=== PATIENT | female | born 1995 | race Caucasian/White ===

== ENCOUNTER 2024-08-26 20:25 | Emergency (ER) | payer OTHER, SELFPAY ==
[2024-08-26 20:32] VITALS: BP 107/60; PULSE 81; RESP 18; TEMP 37.1; O2SAT 98; BMI 34.4
--- NOTE | 2024-08-26 20:34 | ED_ITS ---
HPI - Nausea/Vomiting/Diarrhea General Chief complaint: Nausea/Vomiting/Diarrhea Stated complaint: vomiting/nose bleeding/dizzy Time Seen by Provider: 08/26/24 21:56 History of Present Illness ED Provider: Kostas MEDRANO Narrative: The patient is a 28-year-old woman with a history of leukemia. She receives her treatment in [place]. She last had chemotherapy 3 months ago. She says that she was 1st diagnosed with leukemia at the age of 9. The patient comes to the emergency room today because she has had some intermittent nausea over the last few days. Today she had vomiting and some epigastric discomfort and felt lightheaded. She also had a nosebleed. She became very nervous and came to the emergency room. While waiting to be seen her symptoms have essentially completely resolved although she has some slight ongoing epigastric discomfort. She is feeling much much better. No fevers. No sweats or chills. Related Data Allergies Allergy/AdvReac Type Severity Reaction Status Date / Time bee pollen [BEE STINGS] Allergy Unknown ANAPHLYAXIS Verified 08/26/24 20:37 bee sting Allergy Unknown anaphylaxis Uncoded 08/26/24 20:37 Review of Systems 2 Review of Systems: Yes all other systems are reviewed and are negative PMFSH Social History Social History Advance Directives: No Advance Directives Information Provided: No Do you have a plan to hurt others: No Plan Physical Exam 2 Vital Signs: Vital Signs: Last Vital Signs Temp 98.2 F 08/26/24 22:43 Pulse 63 08/26/24 22:43 Resp 16 08/26/24 22:43 BP 104/61 08/26/24 22:43 Pulse Ox 98 08/26/24 22:43 O2 Del Method Room Air 08/26/24 22:43 BMI result Body Mass Index 34.4 Const: Other: The patient is awake, alert, pleasant, cooperative. At the time that I saw her she was feeling better. She did not seem in acute distress. HEENT: Other: Face is symmetrical. Mucous membranes are moist. The pharynx is unremarkable. There is a small area on the right anterior nasal septum that showed what might have been stigmata of recent bleeding. There was no active bleeding, no blood clots in the nostrils. Eyes: General: appearance normal, both eyes and all related structures Neck: Neck: Yes normal visual inspection, Yes full ROM and Yes no lymphadenopathy Resp: Effort & Inspection: normal respiratory effort Auscultation: clear to auscultation bilaterally Cardio: Rate: regular rate Rhythm: regular rhythm Heart sounds: S1 normal heart sound present and S2 normal heart sound present GI: Other: The abdomen is flat, soft, and nontender. Skin: General skin exam: no rashes or lesions noted Neuro: Other: The patient is awake and alert with a normal mental status. Cranial nerves are grossly intact. She moves her extremities normally and appropriately. Gait is normal. Extrem: General: Yes normal to inspection, Yes full ROM, Yes no pedal edema and Yes no calf tenderness Course Course Course Narrative: This is a Rapid Medical Examination (RME) performed by Omid Gracia PA-C in triage. Full HPI, ROS, assessment and treatment plan per primary provider in the Main ED. 28 y/o female with history of recurrent leukemia x3 (AML) s/p multiple rounds of oral chemo (last was a few months ago at [facility]), lupus who presents to the ER for evaluation of 3 days of nausea, vomiting, fatigue, epigastric pain for the last 3 days. she has also had recurrent epistaxis. Plan: labs, including cbc w/ diff, UA, viral swab Medications Administered Discontinued Medications Generic Name Dose Route Start Last Admin Trade Name Freq PRN Reason Stop Dose Admin Sucralfate 1 gm 08/26/24 22:06 08/26/24 22:12 Sucralfate Oral Suspension 1 Gm/10 Ml Oral.Susp PO 08/26/24 22:07 1 gm ONCE ONE Administration Medical Decision Making Medical Decision Making MDM Narrative: Patient is a 28-year-old female with a history of leukemia. She received chemotherapy last 3 months ago. Today she had abdominal pain, nausea, and vomiting as well as some intermittent nosebleeds. There was no ongoing bleeding. Her symptoms had improved spontaneously prior to my evaluation. Labs show a white count of 10.3, hematocrit 36.2, platelet count 293, differential shows 64% neutrophils, 2% bands, 29% lymphocytes, 3% monocytes, 2% eosinophils. Metabolic labs are unremarkable with normal LFTs and lipase. Urinalysis is unremarkable, no sign of infection or blood. Viral swab was negative for the flu, RSV, and COVID. The patient was given a dose of sucralfate for some epigastric discomfort. This seemed to help. She looks very well. I think she may be discharged to follow up with the regular doctor. Lab Data 08/26/24 21:02 08/26/24 21:02 Labs: Lab Results 08/26/24 Range/Units 21:02 WBC 10.3 (4.8-10.8) X10*3/uL RBC 4.19 L (4.20-5.50) X10*6/uL Hgb 12.1 (12.0-16.0) g/dl Hct 36.2 L (37.0-47.0) % MCV 86.4 (80.0-98.0) fL MCH 28.9 (27.0-33.0) pg MCHC 33.4 (31.0-35.0) g/dl RDW 13.1 (11.0-16.0) % Plt Count 293 (160-400) X10*3/uL MPV 10.2 (9.4-12.3) fL Absolute Nucleated RBC 0.000 (0.0-0.012) X10*3/uL Nucleated RBC % (auto) 0.0 (0.0-0.2) /100WBC Neutrophils % (Manual) 64 (45-73) % Band Neutrophils % 2 L (3-5) % Lymphocytes % (Manual) 29 (20-40) % Monocytes % (Manual) 3 (2-11) % Eosinophils % (Manual) 2 (0-4) % Abs Neuts (Manual) 6.8 (2.0-8.3) X10*3/uL Lymphocytes # (Manual) 3.0 (1.2-4.9) X10*3/uL Monocytes # (Manual) 0.3 (0.1-1.2) X10*3/uL Eosinophils # (Manual) 0.2 (0.0-0.4) X10*3/uL Platelet Estimate NORMAL (NORMAL) Plt Morphology Comment NORMAL RBC Morphology NORMAL Sodium 141 (135-145) mmol/L Potassium 4.0 (3.3-5.1) mmol/L Chloride 108 (96-108) mmol/L Carbon Dioxide 25 (22-29) mmol/L Anion Gap 12 (12-20) BUN 8 L (9-16) mg/dL Creatinine 0.87 (0.5-1.4) mg/dL Estim Creat Clear Calc 98.3 Estimated GFR > 60 Random Glucose 80 (60-115) mg/dL Calcium 9.0 (8.4-10.2) mg/dL Magnesium 2.2 (1.6-2.6) mg/dL Total Bilirubin 0.3 (0.0-1.0) mg/dL Direct Bilirubin 0.1 (0.0-0.5) mg/dL AST 20 (5-31) U/L ALT 20 (0-31) U/L Alkaline Phosphatase 56 (39-117) U/L Total Protein 7.2 (6.5-8.0) g/dL Albumin 4.2 (3.5-5.0) g/dL Lipase 15 (8-78) U/L Urine Color Yellow Urine Appearance Clear Urine pH 5.5 (5.0-9.0) Ur Specific [place] 1.015 (1.005-1.025) Urine Protein Negative (Neg-Trace) mg/dL Urine Glucose (UA) Negative (Negative) mg/dL Urine Ketones Trace (Negative) mg/dL Urine Blood Negative (Negative) Urine Nitrite Negative (Negative) Ur Leukocyte Esterase Negative (Negative) Urine Test NEGATIVE (NEGATIVE) Influenza Type A (PCR) NEGATIVE (Negative) Influenza Type B (PCR) NEGATIVE (Negative) RSV RNA Qual (PCR) NEGATIVE (Negative) SARS-CoV-2 RNA (RT-PCR) NEGATIVE (Negative) Discharge Plan Discharge Clinical Impression: Vomiting, Epigastric abdominal pain, Nosebleed, History of leukemia Patient Disposition: Home, Self-Care Additional Instructions: Your testing in the emergency room today has been quite reassuring. Please follow up with your regular doctor to discuss this episode further. Return to the emergency room if worse. Referrals: Nery Vizcaino PA [Physician [employer]] - Interventions: ED Discharge Assessment Last Done: 08/26/24 22:43 Discharge Date/Time: 08/26/24 22:44 Print Language: Vietnamese
[2024-08-26 21:10] LABS: Baso%MD 0.4 %; Eos%MD 1.6 %; Hematocrit 36.2 % (37.0-47.0); Hemoglobin 12.1 g/dl (12.0-16.0); IG%MD 0.4 %; Mean Corpuscular HGB Conc 33.4 g/dl (31.0-35.0); Mean Corpuscular Hemoglobin 28.9 pg (27.0-33.0); Mean Corpuscular Volume 86.4 fL (80.0-98.0); Mean Platelet Volume 10.2 fL (9.4-12.3); Mono%MD 6.5 %; Neut%MD 53.1 %; Platelet Count 293 X10*3/uL (160-400); Red Blood Count 4.19 X10*6/uL (4.20-5.50); Red Cell Distribution Width 13.1 % (11.0-16.0); White Blood Count 10.3 X10*3/uL (4.8-10.8)
[2024-08-26 21:32] LABS: Alanine Aminotransferase 20 U/L (0-31); Albumin Level 4.2 g/dL (3.5-5.0); Alkaline Phosphatase 56 U/L (39-117); Anion Gap 12 (12-20); Aspartate Amino Transferase 20 U/L (5-31); Bilirubin Direct 0.1 mg/dL (0.0-0.5); Bilirubin Total 0.3 mg/dL (0.0-1.0); Blood Urea Nitrogen 8 mg/dL (9-16); Carbon Dioxide 25 mmol/L (22-29); Chloride 108 mmol/L (96-108); Creatinine Clr Calc Pharmacy 98.3; Estimated Glomerular Filt Rate > 60; Glucose Random 80 mg/dL (60-115); Lipase 15 U/L (8-78); Magnesium 2.2 mg/dL (1.6-2.6); Sodium 141 mmol/L (135-145); Total Protein 7.2 g/dL (6.5-8.0)
[2024-08-26 21:49] LABS: Influenza A PCR NEGATIVE (Negative); Influenza B PCR NEGATIVE (Negative); Resp Syncy Virus RNA Qual PCR NEGATIVE (Negative); SARS COV2 PCR INHOUSE NEGATIVE (Negative)
[2024-08-26 21:57] LABS: Band Neutrophils Percent 2 % (3-5); Eosinophils Absolute Manual 0.2 X10*3/uL (0.0-0.4); Eosinophils Percent Manual 2 % (0-4); Lymphocytes Percent Manual 29 % (20-40); Monocytes Absolute Manual 0.3 X10*3/uL (0.1-1.2); Monocytes Percent Manual 3 % (2-11); Neutrophils Absolute Manual 6.8 X10*3/uL (2.0-8.3); Neutrophils Percent Manual 64 % (45-73)
[2024-08-26 21:59] LABS: Platelet Estimate NORMAL (NORMAL); Platelet Morphology Comment NORMAL; RBC Morphology NORMAL
[2024-08-26 22:07] VITALS: BP 104/61; PULSE 63; RESP 16; TEMP 36.8; O2SAT 98
[2024-08-26 22:07] LABS: Appearance Urine Clear; Color Urine Yellow; Glucose Urine UA Negative (Negative); Leukocyte Esterase Urine Negative (Negative); Nitrite Urine Negative (Negative); PH 5.5 (5.0-9.0); Specific Gravity - Urine 1.015 (1.005-1.025); UPreg QC Valid YES; Urine Blood Negative (Negative); Urine Ketones Trace mg/dL (Negative); Urine Pregnancy NEGATIVE (NEGATIVE); Urine Protein Negative (Neg-Trace)
[2024-08-26] MEDS: Sucralfate Oral Suspension 1 GM/10 ML ORAL.SUSP PO (22:12)
[2024-08-26 22:43] VITALS: BP 104/61; PULSE 63; RESP 16; TEMP 36.8; O2SAT 98
== END 2024-08-26 22:44 | disposition home or self-care (01) ==
PROVIDERS: Physician Assistant; Emergency Provider Emergency Medicine
DX: R11.2 Nausea with vomiting, unspecified (principal); R10.13 Epigastric pain; R04.0 Epistaxis; C95.90 Leukemia, unspecified not having achieved remission; R53.83 Other fatigue; Z92.21 Personal history of antineoplastic chemotherapy; Z03.818 Encounter for observation for suspected exposure to other biological agents ruled out
CPT/HCPCS: 0241U; 36415; 80048; 80076; 81003; 81025; 83690; 83735; 85007; 85027; 99283